=== PATIENT | male | born 1980 | race Two or more races ===

== ENCOUNTER 2018-07-17 22:59 | Inpatient (IN) | payer MEDICAID ==
[2018-07-17] MEDS ORDERED: NS 1,000 ML IV ONE (23:21)
[2018-07-17] MEDS ORDERED: ONDANSETRON 4 MG/2 ML VIAL IVP ONE (23:21)
[2018-07-17] MEDS ORDERED: HYDROmorphONE/DILAUDID 2 MG/ML INJ IVP ONE (23:21)
[2018-07-17] MEDS ORDERED: ceFAZolin 2 GM/DEXTROSE 100 ML IV ONE (23:31)
[2018-07-17 23:33] LABS: PLATELET COUNT 233 10^3/uL (150-400)
--- NOTE | 2018-07-17 23:34 | EDPHY ---
H & P Stated Complaint: Bee sting, swelling, R calf Time Seen by Provider: 07/17/18 23:32 HPI/ROS: HPI CHIEF COMPLAINT: Right calf pain and swelling HISTORY OF PRESENT ILLNESS: A 38-year-old male, otherwise healthy, denies any significant medical history does not take any daily medications presents emergency room with right calf pain, swelling, redness and warmth. Patient states that he thinks he got bit by an insect yesterday. He states he was close to [place]. However he did not directly see any insect on his calf. He developed calf pain it yesterday progressively worsening swelling, pain and redness. No fever. However the pain has become worse. Decided come the emergency room. Past Medical History: Denies medical history Past Surgical History: Denies surgical history Social History: Denies drugs alcohol tobacco. Family History: Noncontributory ROS REVIEW OF SYSTEMS: 10 Systems were reviewed and negative with the exception of the elements mentioned in the history of present illness. Exam Constitutional triage nursing summary reviewed, vital signs reviewed, awake/ alert. Eyes normal conjunctivae and sclera, EOMI, PERRLA. HENT normal inspection, atraumatic, moist mucus membranes, no epistaxis, neck supple/ no meningismus, no raccoon eyes. Respiratory clear to auscultation bilaterally, normal breath sounds, no respiratory distress, no wheezing. Cardiovascular rate normal, regular rhythm, no murmur, no edema, distal pulses normal. Gastrointestinal soft, non-tender, no rebound, no guarding, normal bowel sounds, no distension, no pulsatile mass. Genitourinary no CVA tenderness. Musculoskeletal right lower extremity: Right posterior calf is firm, indurated , warm, red 10 cm circumferential area of redness concerning for infection. no midline vertebral tenderness, full range of motion, no calf swelling, no tenderness of extremities, no meningismus, good pulses, neurovascularly intact. Skin pink, warm, & dry, no rash, skin atraumatic. Neurologic awake, alert and oriented x 3, AAOx3, moves all 4 extremities equally, motor intact, sensory intact, CN II-XII intact, normal cerebellar, normal vision, normal speech. Psychiatric normal mood/affect. Heme/Lymph/Immune no lymphadenopathy. Differential Diagnosis: Includes but is not limited to in a particular order, right calf cellulitis, right calf abscess, insect envenomation. Medical Decision Making: Plan for this patient IV establishment inflammatory markers, CBC, ESR, CRP, blood cultures, lactic acid, ultrasound right lower extremity. IV Ancef 2 g. Re-evaluation: Ultrasound of the right lower extremity shows no evidence of abscess. Cellulitis present. Blood work reviewed. Mild leukocytosis, mild elevation inflammatory marker. Given the size of the calf swelling redness warmth plan will be for Ancef in observation overnight. I have asked the hospitalist service to observe him and admit. Blood cultures been pulled. Lactic less than 2. Return emergency room if there is worsening symptoms. Source: Patient - Personal History Current Tetanus Diphtheria and Acellular Pertussis (TDAP): Yes - Medical/Surgical History Hx Asthma: Yes Hx Chronic Respiratory Disease: No Hx Diabetes: No Hx Cardiac Disease: No Hx Renal Disease: No Hx Cirrhosis: No Hx Alcoholism: No Hx HIV/AIDS: No Hx Splenectomy or Spleen Trauma: No Other PMH: PMH: Asthma, HTN - Social History Smoking Status: Never smoked Constitutional: Initial Vital Signs Temperature (C) 37.2 C 07/17/18 23:01 Heart Rate 89 07/17/18 23:01 Respiratory Rate 20 07/17/18 23:01 Blood Pressure 134/82 H 07/17/18 23:01 O2 Sat (%) 94 07/17/18 23:01 O2 Delivery Mode Room Air Allergies/Adverse Reactions: No Known Allergies Allergy (Unverified 07/17/18 23:00) Home Medications: Medication Instructions Recorded NK [No Known Home Meds] 07/18/18 Medical Decision Making - Data Points Laboratory Results: Laboratory Results 07/17/18 23:21 07/17/18 23:21 Medications Given: Hydrocodone Bitart/Acetaminophen ([place] 5/325) 1 - 2 tab PO Q4HRS PRN PRN Reason: Pain, Moderate Able to Take PO Stop: 07/28/18 00:10 Last Admin: 07/18/18 19:29 Dose: 1 tab Diphenhydramine HCl (Benadryl) 25 mg PO Q6HRS PRN PRN Reason: Itching Stop: 01/14/19 09:25 Last Admin: 07/18/18 19:29 Dose: 25 mg Cefazolin Sodium/Dextrose (Ancef 1 Gm (Premix)) 50 mls @ 200 mls/hr IV Q8HRS SHANNON PRN Reason: Protocol Stop: 08/17/18 06:59 Last Admin: 07/18/18 22:00 Dose: 50 mls Discontinued Medications Hydromorphone HCl (Dilaudid) 0.5 mg IVP EDNOW ONE Stop: 07/17/18 23:22 Last Admin: 07/17/18 23:29 Dose: 0.5 mg Sodium Chloride (Ns) 1,000 mls @ 0 mls/hr IV EDNOW ONE; Wide Open PRN Reason: Protocol Stop: 07/17/18 23:22 Last Admin: 07/17/18 23:28 Dose: 1,000 mls Cefazolin Sodium/Dextrose (Ancef 2 Gm) 100 mls @ 200 mls/hr IV EDNOW ONE PRN Reason: Protocol Stop: 07/18/18 00:00 Last Admin: 07/17/18 23:57 Dose: 100 mls Ondansetron HCl (Zofran) 4 mg IVP EDNOW ONE Stop: 07/17/18 23:22 Last Admin: 07/17/18 23:28 Dose: 4 mg Departure - Departure Disposition: [facility] Acute Clinical Impression: Cellulitis of leg Qualifiers: Laterality: right Qualified Code(s): L03.115 - Cellulitis of right lower limb Condition: Fair
[2018-07-18] MEDS ORDERED: LORazepam 0.5 MG TAB PO PRN (00:11)
[2018-07-18] MEDS ORDERED: ONDANSETRON 4 MG/2 ML VIAL IVP PRN (00:11)
[2018-07-18] MEDS ORDERED: ACETAMINOPHEN 325 MG TAB PO PRN (00:11)
[2018-07-18] MEDS ORDERED: ONDANSETRON DISINTEGRATING 4 MG TAB PO PRN (00:11)
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
[2018-07-18] MEDS: HYDROCODONE/APAP 5/325 TAB PO PRN ×4 (06:20→23:56)
[2018-07-18] MEDS: diphenhydrAMINE 25 MG CAP PO PRN ×2 (09:57→19:29)
--- NOTE | 2018-07-18 13:47 | HOSPPROG ---
Hospitalist Progress Note Assessment/Plan: 38y male with c/o leg pain. #RLE cellulitis -cont IV abx -elevate #HTN -resolved #Wasp sting -RLE #Pain -stable #Hx asthma -stable #Dispo -hopefully 1-2 days Subjective: Feeling better. Some itching. Objective: Vital Signs Temp Pulse Resp BP Pulse Ox 36.6 C 81 16 116/70 95 07/18/18 11:14 07/18/18 11:14 07/18/18 11:14 07/18/18 11:14 07/18/18 11:14 07/17/18 07/18/18 07/19/18 05:59 05:59 05:59 Intake Total 1100 Balance 1100 - Physical Exam Constitutional: no apparent distress, appears nourished Eyes: PERRL, anicteric sclera Ears, Nose, Mouth, Throat: moist mucous membranes, hearing normal Cardiovascular: No JVD, No edema Respiratory: no respiratory distress, reduced air movement Gastrointestinal: No tenderness, No ascites Skin: warm, no induration, erythema Musculoskeletal: full muscle strength, no joint effusions Neurologic: AAOx3 Psychiatric: interacting appropriately, not anxious ICD10 Worksheet Patient Problems: Problems Problem Status Onset Cellulitis of leg Acute
--- NOTE | 2018-07-18 16:30 | PDMN ---
Medical Necessity Medical necessity: Change to IP, as of 07/18/18, per [employer]; los >2 mn for ongoing management of RLE cellulitis r/t wasp sting; requiring further monitoring, pain management & IV abx; hx HTN, asthma
--- NOTE | 2018-07-19 14:27 | HOSPPROG ---
Hospitalist Progress Note Assessment/Plan: 38y male with c/o leg pain. #RLE cellulitis -cont IV abx -elevate -improved but still requires IV abx -US neg for DVT or fluid, D/W Radiology #HTN -resolved #Wasp sting -RLE #Pain -stable #Hx asthma -stable #Dispo -hopefully 1-2 days Subjective: Feeling better. Less itching Objective: Vital Signs Temp Pulse Resp BP Pulse Ox 36.7 C 75 19 127/85 H 97 07/19/18 07:42 07/19/18 07:42 07/19/18 07:42 07/19/18 07:42 07/19/18 07:42 07/18/18 07/19/18 07/20/18 05:59 05:59 05:59 Intake Total 100 Balance 100 - Physical Exam Constitutional: no apparent distress, appears nourished Eyes: PERRL, anicteric sclera Ears, Nose, Mouth, Throat: moist mucous membranes, hearing normal Cardiovascular: No JVD, No edema Respiratory: no respiratory distress, clear to auscultation Gastrointestinal: No tenderness, No ascites Skin: warm, no induration, erythema Musculoskeletal: normal joint ROM, no joint effusions, muscular tenderness Neurologic: AAOx3 Psychiatric: interacting appropriately, not anxious, not encephalopathic, thought process linear ICD10 Worksheet Patient Problems: Problems Problem Status Onset Cellulitis of leg Acute
--- NOTE | 2018-07-19 15:52 | ASMTCMCOM ---
CM Note CM Note Notes: Reviewed chart, pt admitted for cellulitis d/t a bee sting. Pt lives at home w/ and children. Pt's brother present, asked pt if he wanted brother to leave in regard to talking about sensitive subjects but pt stated it was ok that his brother stayed. Discussed pt's drinking "6 pack a day" per H&P, he says he may have "exagerated" and was planning on stopping, he's done it before. Pt declines the need for any assitance or resources. Anticipate will dc home w/support of family when medically stable. CM available for any changes. Pt will transition to oral abx at dc. DC Plan: Independent Date Signed: 07/18/2018 04:29 PM Electronically Signed By:Parisa Goyal RN
[2018-07-19] MEDS: HYDROCODONE/APAP 5/325 TAB PO PRN (21:53)
--- NOTE | 2018-07-20 08:20 | HOSPPROG ---
Hospitalist Progress Note Assessment/Plan: 38y male with c/o leg pain. Today is my first encounter w the patient, chart reviewed. #RLE cellulitis in the setting of a wasp sting -cefazolin -US neg for DVT or fluid, -patient has been stung multiple times in the past without this type of reaction -redness has decreased but is still ongoing with warmth #HTN -resolved #Wasp sting -RLE -add pepcid, zyrtec and topical calamine lotion #Pain -stable #Hx asthma -stable #plan: will re-evaluate later today Subjective: Rene says his right leg swelling is better but has some tenderness aroung the ankle and anterior jalloh area. Objective: Vital Signs Temp Pulse Resp BP Pulse Ox 36.6 C 70 16 126/85 H 97 07/19/18 23:01 07/19/18 23:01 07/19/18 23:01 07/19/18 23:01 07/19/18 23:01 07/19/18 07/20/18 07/21/18 05:59 05:59 05:59 Intake Total 100 Balance 100 - Physical Exam Constitutional: appears nourished Eyes: PERRL Ears, Nose, Mouth, Throat: hearing normal Cardiovascular: regular rate and rhythym Respiratory: no respiratory distress Gastrointestinal: normoactive bowel sounds Skin: warm, other (right calf with swelling, has decreased in size, but is still warm and tender) Neurologic: AAOx3 Psychiatric: interacting appropriately ICD10 Worksheet Patient Problems: Problems Problem Status Onset Cellulitis of leg Acute
[2018-07-20] MEDS ORDERED: CALAMINE 180 ML BOTTLE TP PRN (09:02)
[2018-07-20] MEDS: FAMOTIDINE 20 MG TAB PO SCH ×2 (10:34→21:28)
[2018-07-20] MEDS: CETIRIZINE 10 MG TAB PO SCH (10:34)
[2018-07-21 05:52] LABS: PLATELET COUNT 242 10^3/uL (150-400)
[2018-07-21 08:18] VITALS: BP 139/93
--- NOTE | 2018-07-21 08:35 | HOSPPROG ---
Hospitalist Progress Note Assessment/Plan: 38y male with c/o leg pain. #RLE cellulitis in the setting of a wasp sting -cefazolin -US neg for DVT or fluid, -much improved #HTN -resolved #Wasp sting -RLE -add pepcid, zyrtec and topical calamine lotion #Pain -stable #Hx asthma -stable #plan: dc home on oral abx, reviewed s/sx of worsening infection Subjective: Rene is feeling well. Objective: Vital Signs Temp Pulse Resp BP Pulse Ox 36.9 C 76 16 139/93 H 96 07/21/18 08:00 07/21/18 08:00 07/21/18 08:00 07/21/18 08:00 07/21/18 08:00 Laboratory Results 07/21/18 05:24 07/20/18 07/21/18 07/22/18 05:59 05:59 05:59 Intake Total 50 Output Total 5 Balance -5 50 - Physical Exam Constitutional: no apparent distress, appears nourished, not in pain Eyes: PERRL Ears, Nose, Mouth, Throat: hearing normal Respiratory: no respiratory distress Skin: warm, other (r lower ext redness almost completely resolved, no pain w palp, has some swelling around the calf area,not warm) Musculoskeletal: full muscle strength Neurologic: AAOx3 Psychiatric: interacting appropriately ICD10 Worksheet Patient Problems: Problems Problem Status Onset Cellulitis of leg Acute
[2018-07-21] MEDS: CETIRIZINE 10 MG TAB PO SCH (09:28)
[2018-07-21] MEDS: FAMOTIDINE 20 MG TAB PO SCH (09:28)
--- NOTE | 2018-07-21 11:02 | GDS ---
DISCHARGE DIAGNOSES: 1. Right lower extremity cellulitis in the setting of a wasp sting. 2. Hypertension. 3. Wasp sting, local reaction. 4. Pain. 5. History of asthma. HISTORY OF PRESENT ILLNESS: Briefly, the patient is a 38-year-old gentleman with no significant past medical history, who presented to the emergency room with right calf pain, swelling, and redness. Devin baxter was working outdoors and was near a wasp nest, and it stung his right calf. He has been stung mult iple times, and it gets swollen and resolves, but he had developed a welt, and it was itching, and he was scratching it frequently and picking at it. He denies any fever or chills. He was admitted and treated with cefazolin. We had him elevate the extremity in addition and treat with calamine lotion as well as Zyrtec. The swelling has almost completely resolved as well as the redness. He will be discharged home on a few more days of antibiotics. HOSPITAL COURSE: 1. Right lower extremity cellulitis: This is in setting of a wasp sting. He had an ultrasound perf ormed that was negative for DVT or any type of fluid. It is much improved. 2. Hypertension: Improved. 3. Wasp sting: He seemed to have a significant reaction to this. Recommended he stay on Pepcid and Zyrtec and topical calamine lotion. 4. Pain: Resolved. 5. Asthma: Stable. DISCHARGE CONDITION: Stable. Blood pressure is 139/93. Heart rate of 76. Respiratory rate of 16. O2 sats on room air 96%. Temperature is 36.9 Celsius. MEDICATIONS AT DISCHARGE: Please see the EMR. DISCHARGE INSTRUCTIONS: 1. To take Pepcid and the Zantac until the redness resolves. 2. Elevate his leg 3-5 times above his heart. 3. Take his antibiotics. 4. If he develops fever, chills, worsening redness, return to the ER. Copy requested to: Pcp /[id number]/MODL
== END 2018-07-21 11:07 | disposition home or self-care (01) | DRG 383 ==
LOC: F3E 07-18 00:37 → OBSVTOIN 07-18 16:24
PROVIDERS: ADMIT Family Medicine; ATTEND Family Medicine
DX: L03.115 Cellulitis of right lower limb (principal); I10 Essential (primary) hypertension; T63.461A Toxic effect of venom of wasps, accidental (unintentional), initial encounter; J45.909 Unspecified asthma, uncomplicated
CPT/HCPCS: 96365; J0690; J1170; J2405